=== PATIENT | female | born 1980 ===

== ENCOUNTER 2018-05-12 11:07 | Emergency (ER) | payer OTHER ==
--- NOTE | 2018-05-12 12:51 | ED PDOC ---
HPI: Back Chief Complaint (Nursing): Back Pain Chief Complaint (Provider): back pain History Per: Patient History/Exam Limitations: no limitations Onset/Duration Of Symptoms: Days Current Symptoms Are (Timing): Still Present Quality Of Discomfort: Dull (Pt. reports 4 month history of intermittent back pain, both sides, associated with urinary syptoms. Pt. denies any fevers, vomiting, vaginal discharge. ) Additional Complaint(s): Pt. is a 38 y/o Female who reports 4month history of diffuse lower back pain which occaionally radiates to her lower abd. and is associated with dysuria. Pt. denies vomiting, fevers. Pt. was seen at a clinic and had urine and blood testing which was normal. Pt. denies any current abominal pain, vaginal discharge. Past Medical History Reviewed: Historical Data, Nursing Documentation, Vital Signs - Medical History PMH: No Chronic Diseases - Family History Family History: States: Unknown Family Hx - Home Medications Home Medications: Ambulatory Orders Medication Instructions Recorded Ibuprofen [Motrin Tab] 600 mg PO TID #15 tab 05/12/18 - Allergies Allergies/Adverse Reactions: Allergies Allergy/AdvReac Type Severity Reaction Status Date / Time No Known Allergies Allergy Verified 05/12/18 12:47 Review of Systems Constitutional: Negative for: Fever, Chills Cardiovascular: Negative for: Chest Pain Genitourinary Female: Negative for: Vaginal Discharge, Vaginal Bleeding Musculoskeletal: Positive for: Back Pain Skin: Negative for: Rash Neurological: Negative for: Weakness, Numbness Physical Exam - Physical Exam Appears: Positive for: Well, Non-toxic Head Exam: Positive for: ATRAUMATIC Skin: Positive for: Normal Color, Warm, Dry Cardiovascular/Chest: Positive for: Regular Rate, Rhythm Respiratory: Positive for: Normal Breath Sounds Gastrointestinal/Abdominal: Positive for: Normal Exam, Soft. Negative for: Tenderness Back: Positive for: Normal Inspection. Negative for: L CVA Tenderness, R CVA Tenderness, Vertebral Tenderness, Decreased ROM, Muscle Spasm Medical Decision Making Medical Decision Making: UA ordered U. preg ordered Motrin po ordered. D/w pt. via form setter steel pan forms, UA normal. Abd. soft/nt, no CVA tenderness. No need for emergent work up or imaging at present. Pt. agrees to f/u with FP clinic. Disposition - Clinical Impression Clinical Impression: Back pain - Disposition Referrals: [facility] [Outside] Disposition: Routine/Home Disposition Time: 15:42 Condition: IMPROVED Prescriptions: Ibuprofen [Motrin Tab] 600 mg PO TID #15 tab Instructions: Upper Back Pain (DC) Forms: [facility] (Ukrainian) Print Language: MALDIVIAN
[2018-05-12 14:10] LABS: SQUAMOUS EPITHIAL 1 /hpf (0-5); URINE BILIRUBIN NEGATIVE (NEGATIVE); URINE BLOOD NEGATIVE (NEGATIVE); URINE CLARITY CLEAR (Clear); URINE COLOR STRAW (YELLOW); URINE GLUCOSE (UA) NEG (Normal); URINE LEUKOCYTE ESTERASE NEG Leu/uL (Negative); URINE PROTEIN NEGATIVE (NEGATIVE); URINE UROBILINOGEN 0.2-1.0 mg/dL (0.2-1.0)
[2018-05-12 15:28] VITALS: BP 133/80; PULSE 63; RESP 18; TEMP 97; O2SAT 98
== END 2018-05-12 15:34 | disposition home or self-care (01) ==
LOC: H.ER 11:07
DX: M54.9 Dorsalgia, unspecified (principal)